=== PATIENT | male | born 1970 | race Caucasian/White ===

== ENCOUNTER → 2018-08-02 | Outpatient (CLI) | payer SELFPAY ==
--- NOTE | 2018-08-02 19:10 | CT_ITS ---
HISTORY: TOBACCO ABUSE, 1 PPD X 30 YRS,PT WEIGHS 275 LBS EXAMINATION: CT Low Dose CT Chest for Lung Cancer Screening TECHNIQUE: Helically acquired images were obtained of the chest following IV contrast. A radiation dose optimization technique was used for this scan. IV Contrast dosage and agent: None. COMPARISON: Chest radiograph 03/19/17. FINDINGS: UPPER ABDOMEN: No acute pathology. HEART AND PERICARDIUM: Heart size is normal. There is no pericardial effusion. VESSELS: Thoracic aorta is not dilated. There is no aortic dissection. There is no central pulmonary embolism although this study was not performed with the pulmonary embolism protocol. MEDIASTINUM AND NAYLA: There is no mediastinal or hilar adenopathy. Esophagus is unremarkable. There is no hiatal hernia. OTHER SOFT TISSUES: Included thyroid gland is unremarkable. There is no axillary, supraclavicular or lower cervical adenopathy. LUNGS AND LARGE AIRWAYS: Clear. No pneumothorax. PLEURA: Unremarkable. No pleural effusion or thickening. BONES: No suspicious lytic or blastic abnormality observed. CT/Low Dose CT Lung Screening IMPRESSION: Negative contrast enhanced CT of the chest. Lung RADS category 1. Individualized dose optimization techniques were used for this CT. at 2144 Reported and signed by: Hernandez Christian MD Electronically Signed: Hernandez Christian, at 21:43 EDT Tel , Service support ,
== END | disposition home or self-care (01) ==
PROVIDERS: Family Provider Family Medicine; PCP Family Medicine; Referring Provider Internal Medicine Pulmonary Disease; Visit Provider Internal Medicine Pulmonary Disease
DX: Z87.891 Personal history of nicotine dependence (principal)
CPT/HCPCS: G0297